=== PATIENT | female | born 1980 | race Caucasian/White ===

== ENCOUNTER 2019-12-11 12:41 | Outpatient (CLI) | payer BC ==
[~2019-12-11 12:41] MED LIST: BUPR-86 PO; DIPH25CA61 PO; GING550C2 PO; IRON PO
[2019-12-11] MEDS ORDERED: Tylenol arthritis PO (13:06)
== END 2019-12-11 23:59 | disposition home or self-care (01) ==
LOC: STAR 12:41
PROVIDERS: ATTEND Obstetrics & Gynecology Female Pelvic Medicine and Reconstructive Surgery
DX: Z02.9 Encounter for administrative examinations, unspecified (principal)

== ENCOUNTER 2019-12-23 12:13 | Day surgery (SDC) | payer BC ==
[2019-12-11 13:06] VITALS: BP 150/88
[~2019-12-23] VITALS: Ht 154.9 cm; Wt 103.5 kg
[~2019-12-23 12:13] MED LIST changes: +BUPIVACAINE/PF-EPI 0.25% 1:200K ONE; +NEOMY/POLYMYXIN B GU IRR. 1 ML ONE; +Tylenol arthritis PO
[2019-12-23] MEDS ORDERED: LACTATED RINGERS 1,000 ML IV SCH ×2 (12:37→19:52)
[2019-12-23 12:39] VITALS: BP 150/88
[2019-12-23 12:55] LABS: HCG UR SG 1.014 (1.003-1.030)
[2019-12-23] MEDS ORDERED: LIDOCAINE-MPF 1%, 2ML INFIL ONE (13:00)
[2019-12-23] MEDS ORDERED: ACETAMINOPHEN 500 MG TABLET PO ONE (13:00)
[2019-12-23] MEDS ORDERED: GABAPENTIN 300 MG CAPSULE PO ONE (13:00)
[2019-12-23] MEDS ORDERED: CEFAZOLIN 1,000 MG ONE ×2 (13:26)
[2019-12-23] MEDS ORDERED: MIDAZOLAM 1 MG/ML, 2ML ONE (13:26)
[2019-12-23] MEDS ORDERED: PROPOFOL 10 MG/ML, 20ML ONE (13:26)
[2019-12-23] MEDS ORDERED: LIDOCAINE-MPF 2% ,5ML ONE (13:26)
[2019-12-23] MEDS ORDERED: FENTANYL PF 100 MCG/2ML ONE ×2 (13:26→16:43)
[2019-12-23] MEDS ORDERED: DEXAMETHASONE 4 MG/ML, 1ML ONE ×2 (13:26)
[2019-12-23] MEDS ORDERED: ONDANSETRON 2MG/ML, 2ML ONE (13:26)
[2019-12-23] MEDS ORDERED: NEOSTIGMINE 1 MG/ML, 10ML ONE (14:23)
[2019-12-23] MEDS ORDERED: ROCURONIUM 10 MG/ML,10ML ONE (14:23)
[2019-12-23] MEDS ORDERED: OXYcodone 5 MG/5 ML ORAL.SOL UDC PO PRN (15:00)
[2019-12-23] MEDS ORDERED: LORazepam 2 MG/ML, 1ML IVPush PRN (15:00)
[2019-12-23] MEDS ORDERED: LABETALOL 5MG/ML, 20ML IV PRN (15:00)
[2019-12-23] MEDS ORDERED: ONDANSETRON 2MG/ML, 2ML IV PRN ×2 (15:00→19:30)
[2019-12-23] MEDS ORDERED: MEPERIDINE/PF 25MG/ML,1ML IVPush PRN (15:00)
[2019-12-23] MEDS ORDERED: HYDROmorphone 2 MG/ML, 1ML IVPush PRN (15:00)
[2019-12-23] MEDS ORDERED: hydrALAzine 20 MG/ML, 1ML IV PRN (15:00)
[2019-12-23] MEDS ORDERED: GLYCOPYRROLATE 0.2MG/1ML, 5ML ONE (15:54)
[2019-12-23] MEDS ORDERED: OXYcodone 5 MG/5 ML ORAL.SOL UDC ONE (16:43)
[2019-12-23] MEDS ORDERED: MEPERIDINE/PF 25MG/ML,1ML ONE (16:43)
[2019-12-23] MEDS: FENTANYL PF 100 MCG/2ML IV PRN ×2 (16:58→17:10)
[2019-12-23] MEDS ORDERED: OXYcodone/APAP 5/325MG TABLET PO PRN (19:30)
[2019-12-23] MEDS ORDERED: KETOROLAC 30 MG/1 ML IV PRN (19:30)
[2019-12-23] MEDS ORDERED: HYDROmorphone 1 MG/ML, 1ML INJ IV PRN (19:30)
[2019-12-23] MEDS ORDERED: IBUPROFEN 600 MG TABLET PO PRN (19:30)
[2019-12-23] MEDS ORDERED: HYDROcodone/APAP 5/325 TABLET PO PRN (19:30)
[2019-12-23] MEDS ORDERED: ACETAMINOPHEN 325 MG TABLET PO SCH (21:00)
[2019-12-24] MEDS ORDERED: FERROUS SULFATE 325 MG TABLET PO SCH (09:00)
[2019-12-24] MEDS ORDERED: DIPHENHYDRAMINE 50 MG CAPSULE PO SCH (09:00)
== END 2019-12-23 22:45 | disposition home or self-care (01) ==
LOC: OUT 12:13 → MERGE 15:00 → 4NE 18:59 → OUT 22:45
PROVIDERS: ATTEND Obstetrics & Gynecology Female Pelvic Medicine and Reconstructive Surgery
DX: N92.1 Excessive and frequent menstruation with irregular cycle (principal); N94.6 Dysmenorrhea, unspecified; N94.10 Unspecified dyspareunia; N81.89 Other female genital prolapse; N39.46 Mixed incontinence; N87.9 Dysplasia of cervix uteri, unspecified; N84.0 Polyp of corpus uteri; N83.8 Other noninflammatory disorders of ovary, fallopian tube and broad ligament; D25.9 Leiomyoma of uterus, unspecified; N81.11 Cystocele, midline; N81.6 Rectocele; N81.5 Vaginal enterocele; R10.2 Pelvic and perineal pain; E66.01 Morbid (severe) obesity due to excess calories; G47.33 Obstructive sleep apnea (adult) (pediatric); M19.90 Unspecified osteoarthritis, unspecified site; Z79.899 Other long term (current) drug therapy; Z98.51 Tubal ligation status; Z90.49 Acquired absence of other specified parts of digestive tract; Z98.890 Other specified postprocedural states
CPT/HCPCS: 57265; 57282; 57288; 58552; 81025; 88307; C1771; J0690; J1100; J1885; J2175; J2250; J2405; J2704; J2710; J3010; J7120; G0378

== ENCOUNTER → 2020-09-03 | Outpatient (CLI) | payer BC ==
[~2020-09-03] MED LIST changes: -BUPIVACAINE/PF-EPI 0.25% 1:200K ONE; +BUPR200T2 PO; +CETI10CA PO; -NEOMY/POLYMYXIN B GU IRR. 1 ML ONE
== END | disposition home or self-care (01) ==
LOC: STAR 13:19
PROVIDERS: ATTEND Obstetrics & Gynecology Female Pelvic Medicine and Reconstructive Surgery
DX: Z01.812 Encounter for preprocedural laboratory examination (principal); Z20.828 Contact with and (suspected) exposure to other viral communicable diseases; R10.2 Pelvic and perineal pain; N81.6 Rectocele; N81.10 Cystocele, unspecified; N39.3 Stress incontinence (female) (male); N94.10 Unspecified dyspareunia
CPT/HCPCS: 36415; 87635

== ENCOUNTER 2020-09-07 08:29 | Day surgery (SDC) | payer BC ==
[~2020-09-07] VITALS: Ht 154.9 cm; Wt 103.4 kg
[~2020-09-07 08:29] MED LIST changes: +BUPIVACAINE/PF 0.25% ONE; +CEFAZOLIN 1,000 MG ONE; +DEXAMETHASONE 4 MG/ML, 1ML ONE; +EPINEPHRINE 1 MG/ML, 1ML ONE; +GLYCOPYRROLATE 0.2MG/1ML, 5ML ONE; +KETOROLAC 30 MG/1 ML ONE; +NEOMY/POLYMYXIN B GU IRR. 1 ML ONE; +NEOSTIGMINE 1 MG/ML, 10ML ONE; +ONDANSETRON 2MG/ML, 2ML ONE; +PROPOFOL 10 MG/ML, 20ML ONE; +ROCURONIUM 10MG/ML,5ML ONE
[2020-09-07 09:15] VITALS: BP 152/93
[2020-09-07] MEDS ORDERED: LACTATED RINGERS 1,000 ML IV SCH (09:30)
[2020-09-07] MEDS ORDERED: CHLORHEXIDINE 15 ML UDC MM ONE (09:30)
[2020-09-07] MEDS ORDERED: FENTANYL PF 100 MCG/2ML ONE ×2 (10:11→13:13)
[2020-09-07] MEDS ORDERED: MIDAZOLAM 1 MG/ML, 2ML ONE (10:11)
[2020-09-07] MEDS ORDERED: MEPERIDINE/PF 25MG/0.5ML IVPush PRN (11:30)
[2020-09-07] MEDS ORDERED: PROMETHAZINE 25 MG/ML, 1ML IVPush PRN (11:30)
[2020-09-07] MEDS ORDERED: ACETAMINOPHEN 325 MG TABLET PO PRN (11:30)
[2020-09-07] MEDS ORDERED: DIPHENHYDRAMINE 50 MG/ML, 1ML IVPush PRN (11:30)
[2020-09-07] MEDS ORDERED: hydrALAzine 20 MG/ML, 1ML IV PRN (11:30)
[2020-09-07] MEDS ORDERED: LABETALOL 5MG/ML, 20ML IV PRN (11:30)
[2020-09-07] MEDS ORDERED: FENTANYL PF 100 MCG/2ML IV PRN (11:30)
[2020-09-07] MEDS ORDERED: HYDROmorphone 1 MG/ML, 1ML INJ IVPush PRN (11:30)
[2020-09-07] MEDS ORDERED: DIAZEPAM 5 MG/ML, 2ML IVPush PRN (11:30)
[2020-09-07] MEDS ORDERED: OXYcodone 5 MG/5 ML ORAL.SOL UDC PO PRN (11:30)
[2020-09-07] MEDS ORDERED: ONDANSETRON 2MG/ML, 2ML IVPush PRN (11:30)
[2020-09-07] MEDS ORDERED: ACETAMINOPHEN 650 MG/20.3 ML UDC ONE (13:13)
[2020-09-07] MEDS ORDERED: OXYcodone 5 MG/5 ML ORAL.SOL UDC ONE (13:13)
[2020-09-07] MEDS ORDERED: ACETAMINOPHEN 325 MG TABLET ONE (13:13)
== END 2020-09-07 15:30 | disposition home or self-care (01) ==
LOC: OUT 08:29
PROVIDERS: ATTEND Obstetrics & Gynecology Female Pelvic Medicine and Reconstructive Surgery
DX: N81.89 Other female genital prolapse (principal); N83.8 Other noninflammatory disorders of ovary, fallopian tube and broad ligament; N94.10 Unspecified dyspareunia; N39.46 Mixed incontinence; N81.6 Rectocele; N81.5 Vaginal enterocele; K66.0 Peritoneal adhesions (postprocedural) (postinfection); G47.33 Obstructive sleep apnea (adult) (pediatric); M19.90 Unspecified osteoarthritis, unspecified site; R10.2 Pelvic and perineal pain; E66.01 Morbid (severe) obesity due to excess calories; Z68.41 Body mass index [BMI] 40.0-44.9, adult; Z90.49 Acquired absence of other specified parts of digestive tract; Z98.51 Tubal ligation status; Z98.890 Other specified postprocedural states; Z79.899 Other long term (current) drug therapy; Z72.89 Other problems related to lifestyle; Z82.49 Family history of ischemic heart disease and other diseases of the circulatory system
CPT/HCPCS: 57265; 57282; 57288; 58661; 88305; C1771; J0171; J0690; J1100; J1885; J2250; J2405; J2704; J2710; J3010; J7120